=== PATIENT | male | born 1945 | race Caucasian/White ===

== ENCOUNTER → 2018-05-18 | Outpatient (CLI) | payer OTHER | END | disposition home or self-care (01) | LOC: LAB 16:36 → LAB SHORT 16:36 | DX: Z48.817 Encounter for surgical aftercare following surgery on the skin and subcutaneous tissue (principal) | CPT/HCPCS: 87070; 87077; 87186; 87205 ==

== ENCOUNTER → 2019-06-14 | Outpatient (CLI) | payer OTHER | END | disposition home or self-care (01) | LOC: PLD 11:58 → LAB SHORT 11:58 | DX: L60.2 Onychogryphosis (principal); B35.1 Tinea unguium | CPT/HCPCS: 88304; 88312 ==

== ENCOUNTER 2023-09-05 12:49 | Day surgery (SDC) | payer OTHER ==
[~2023-09-05] VITALS: Ht 172.7 cm; Wt 111.7 kg
[2023-09-05] MEDS ORDERED: SYMBICORT 16010.2 GM INH (13:42)
[2023-09-05 15:58] VITALS: BP 127/79
--- NOTE | 2023-09-05 16:05 | NUR ---
09/05/23 1605 Gutierrez Perez PT O2 INITIALLY DROPPED TO HIGH 80'S FOR SHORT PERIODS IN SDU. IT RECOVERED TO >92% WITH DEEP BREATHS. PT DENIED SYMPTOMS OF HYPOXIA--INCLUDING SOB AND DIZZINESS--AND NONE WERE OBSERVED. PT WAS GIVEN INCENTIVE SPIROMETER AND INSTRUCTED ON ITS USE. PULSE OXYMETRY WAS MOVED FROM FINGER TO TOE. O2 REMAINED >92% AFTER SWITCHING PULSE- OX TO TOE
== END 2023-09-05 16:23 | disposition home or self-care (01) ==
LOC: ORSCSDS 12:49
PROVIDERS: Podiatrist Foot & Ankle Surgery
PROC: 0SRP0JZ Replacement of Right Toe Phalangeal Joint with Synthetic Substitute, Open Approach (ICD-10-PCS; principal; 2023-09-05 14:15)
DX: M20.41 Other hammer toe(s) (acquired), right foot (principal); I10 Essential (primary) hypertension; E78.5 Hyperlipidemia, unspecified; J45.909 Unspecified asthma, uncomplicated; Z79.899 Other long term (current) drug therapy; Z87.891 Personal history of nicotine dependence
CPT/HCPCS: C1713; J0690; J1100; J2405; J2704